=== PATIENT | male | born 1960 | race African-American/Black ===

== ENCOUNTER 2018-01-04 10:20 | Observation (INO) ==
[2018-01-04] MEDS ORDERED: ONDANSETRON 4 MG/2 ML VIAL IV STA (10:30)
[2018-01-04] MEDS ORDERED: cefTRIAXone 1,000 MG in SODIUM CHLORIDE 0.9% 100 ML IV STA (10:30)
[2018-01-04] MEDS ORDERED: ALBUTEROL 2.5 MG/3 ML NEB RESP TX SCH (10:30)
[2018-01-04] MEDS ORDERED: SODIUM CHLORIDE 0.9% 500 ML IV STA (10:30)
[2018-01-04] MEDS ORDERED: methylPREDNISolone SOD SUC 125 MG/2 ML VIAL IV STA (10:30)
[2018-01-04] MEDS ORDERED: FUROSEMIDE 40 MG/4 ML VIAL IV STA (10:57)
[2018-01-04] MEDS ORDERED: cefTRIAXone 1,000 MG VIAL ONE (11:14)
[2018-01-04] MEDS ORDERED: methylPREDNISolone SOD SUC 125 MG/2 ML VIAL ONE (11:14)
[2018-01-04] MEDS ORDERED: ONDANSETRON 4 MG/2 ML VIAL ONE (11:14)
[2018-01-04] MEDS ORDERED: FUROSEMIDE 100 MG/10 ML VIAL ONE (11:14)
[2018-01-04 11:16] LABS: Basophils % 0.2 % (0.0-0.8); Hematocrit 43.7 VOL% (42.0-52.0); Hemoglobin 14.9 GM/DL (14.0-18.0); Lymphocytes # 2.3 10*3/uL (1.4-4.0); Lymphocytes % 51.3 % (21.2-54.2); Mean Corpuscular HGB Conc 34.1 GM/DL (32-36); Mean Corpuscular Hemoglobin 32 PG (27-34); Mean Corpuscular Volume 92.8 FL (87-102); Mean Platelet Volume 11.3 FL (9.6-12.0); Monocytes # 0.4 10*3/uL (0.11-0.8); Monocytes % 9.8 % (1.7-12.7); Neutrophils # 1.7 10*3/uL (1.4-7.4); Neutrophils % 38.7 % (38.7-73.9); Platelet Count 129 T/CUMM (130-400); Red Blood Count 4.71 MC/CUMM (3.8-5.5); Red Cell Distribution Width 12.8 % (9.3-17.3); White Blood Count 4.5 T/CUMM (4-12)
[2018-01-04 11:27] LABS: PT Patient Result 10.7 SECS
[2018-01-04 11:36] LABS: Alanine Aminotransferase 36 U/L (16-61); Albumin 3.6 G/DL (3.4-5.0); Alkaline Phosphatase 98 U/L (45-117); Aspartate Amino Transferase 61 U/L (0-37); Blood Urea Nitrogen 12 MG/DL (7-18); Calcium 7.8 MG/DL (8.5-10.1); Glucose 92 MG/DL (74-106); Osmolality,Calculated 272.8 MOS/KG (273-304); Potassium 3.5 MMOL/L (3.5-5.1); Sodium 137 MMOL/L (136-145); Total Protein 7.6 G/DL (6.4-8.3); Troponin I Only < 0.015 NG/ML (0.00-0.045)
[2018-01-04 11:49] LABS: Lactic Acid 0.8 MMOL/L (0.4-2.0)
[2018-01-04 12:11] LABS: Hypochromasia 1+; Lymphocytes 52 % (20-55); Platelet Estimate Decreased; Segmented Neutrophils 35 % (50-85); Total Cells Counted 100
[2018-01-04] MEDS ORDERED: MORPHINE 2 MG/1 ML SYRINGE IV PRN (14:43)
[2018-01-04] MEDS ORDERED: ONDANSETRON 4 MG/2 ML VIAL IV PRN (14:43)
[2018-01-04] MEDS ORDERED: ACETAMINOPHEN 325 MG TABLET PO PRN (14:43)
[2018-01-04 16:27] LABS: Apearance,Urine CLEAR (Clear); Bilirubin,Urine Negative (Negative); Blood, Urine Negative (Negative); Glucose,Urine (UA) Negative (Negative); Ketones,Urine 5 mg/dL (Negative); Mucus,Urine Occasional /LPF (Occasional); Nitrite,Urine Negative (Negative); Protein,Urine Negative; RBC,Urine 1 /HPF (0-4); Squamous Epithelial Cell,Urine Occasional /HPF (0-10); Urine Color Yellow (Yellow); Urine Specific Gravity 1.012 (1.001-1.035); Urine Urobilinogen < 2.0 EU/DL (0.2-1.0); WBC,Urine 2 /HPF (0-6)
[2018-01-04] MEDS: methylPREDNISolone SOD SUC 40 MG/1 ML VIAL IV SCH (17:37)
[2018-01-04] MEDS: AZITHROMYCIN INJ 500 MG in SODIUM CHLORIDE 0.9% 250 ML IV SCH (17:37)
[2018-01-04] MEDS: PANTOPRAZOLE 40 MG TABLET PO SCH (17:37)
[2018-01-04] MEDS: ALBUTEROL/IPRATROPIUM 3 ML NEB RESP TX SCH (19:49)
[2018-01-04] MEDS: ENOXAPARIN 40 MG/0.4 ML SYRINGE SUBCUT SCH (21:36)
[2018-01-04] MEDS: guaiFENesin/DM ER 600-30 MG TABLET PO SCH (21:36)
[2018-01-05] MEDS: ALBUTEROL/IPRATROPIUM 3 ML NEB RESP TX SCH ×5 (01:28→23:52)
[2018-01-05] MEDS: methylPREDNISolone SOD SUC 40 MG/1 ML VIAL IV SCH ×3 (02:55→16:46)
[2018-01-05 06:39] LABS: Basophils % 0.4 % (0.0-0.8); Hematocrit 41.1 VOL% (42.0-52.0); Hemoglobin 14.4 GM/DL (14.0-18.0); Immature Granulocytes % 0.4 %; Immature Granulocytes Absolute 0.01 #; Lymphocytes # 0.9 10*3/uL (1.4-4.0); Lymphocytes % 33.9 % (21.2-54.2); Mean Corpuscular Hemoglobin 31 PG (27-34); Mean Corpuscular Volume 89.3 FL (87-102); Mean Platelet Volume 11.5 FL (9.6-12.0); Monocytes # 0.3 10*3/uL (0.11-0.8); Monocytes % 9.2 % (1.7-12.7); Neutrophils # 1.5 10*3/uL (1.4-7.4); Neutrophils % 56.1 % (38.7-73.9); Platelet Count 144 T/CUMM (130-400); Red Cell Distribution Width 12.7 % (9.3-17.3); White Blood Count 2.7 T/CUMM (4-12)
[2018-01-05 07:05] LABS: Calcium 8.2 MG/DL (8.5-10.1); Osmolality,Calculated 278.7 MOS/KG (273-304); Potassium 3.3 MMOL/L (3.5-5.1)
[2018-01-05 07:06] LABS: Lymphocytes 27 % (20-55); Segmented Neutrophils 70 % (50-85); Total Cells Counted 100
[2018-01-05 07:07] LABS: Hypochromasia 2+; Microcytosis 2+; Platelet Estimate Adequate
[2018-01-05] MEDS: POTASSIUM CHLORIDE 20 MEQ TABLET PO PRN ×3 (09:02→12:28)
[2018-01-05] MEDS: guaiFENesin/DM ER 600-30 MG TABLET PO SCH ×2 (09:02→22:00)
[2018-01-05] MEDS: PANTOPRAZOLE 40 MG TABLET PO SCH (09:02)
[2018-01-05] MEDS: cefTRIAXone 1,000 MG in SYRINGE 1 EACH IV SCH (12:25)
[2018-01-05] MEDS: GABAPENTIN 600 MG TABLET PO SCH ×2 (14:51→22:00)
[2018-01-05] MEDS: AZITHROMYCIN INJ 500 MG in SODIUM CHLORIDE 0.9% 250 ML IV SCH (16:45)
[2018-01-05] MEDS: FUROSEMIDE 40 MG TABLET PO SCH (16:46)
[2018-01-05] MEDS: LOVASTATIN 20 MG TABLET PO SCH (16:46)
[2018-01-05] MEDS: POTASSIUM CHLORIDE 20 MEQ TABLET PO SCH (22:00)
[2018-01-05] MEDS: ENOXAPARIN 40 MG/0.4 ML SYRINGE SUBCUT SCH (22:00)
[2018-01-06] MEDS: methylPREDNISolone SOD SUC 40 MG/1 ML VIAL IV SCH ×3 (01:30→16:30)
[2018-01-06 06:27] LABS: Basophils % 0.2 % (0.0-0.8); Hematocrit 41.2 VOL% (42.0-52.0); Hemoglobin 13.8 GM/DL (14.0-18.0); Immature Granulocytes % 0.3 %; Immature Granulocytes Absolute 0.02 #; Lymphocytes # 1.4 10*3/uL (1.4-4.0); Lymphocytes % 23.1 % (21.2-54.2); Mean Corpuscular HGB Conc 33.5 GM/DL (32-36); Mean Corpuscular Hemoglobin 31 PG (27-34); Mean Corpuscular Volume 92.6 FL (87-102); Monocytes # 0.5 10*3/uL (0.11-0.8); Neutrophils # 4.2 10*3/uL (1.4-7.4); Neutrophils % 68.4 % (38.7-73.9); Platelet Count 142 T/CUMM (130-400); Red Blood Count 4.45 MC/CUMM (3.8-5.5); Red Cell Distribution Width 12.9 % (9.3-17.3); White Blood Count 6.1 T/CUMM (4-12)
[2018-01-06 06:58] LABS: Calcium 8.1 MG/DL (8.5-10.1); Osmolality,Calculated 281.5 MOS/KG (273-304); Potassium 4.5 MMOL/L (3.5-5.1)
[2018-01-06 07:02] LABS: Band Neutrophils 3 % (0-10); Giant Platelets Few; Hypochromasia 1+; Lymphocytes 24 % (20-55); Microcytosis Slight; Ovalocytes Slight; Platelet Estimate Normal; Segmented Neutrophils 65 % (50-85); Total Cells Counted 100
[2018-01-06] MEDS: ALBUTEROL/IPRATROPIUM 3 ML NEB RESP TX SCH ×3 (07:35→20:27)
[2018-01-06] MEDS: FUROSEMIDE 40 MG TABLET PO SCH ×2 (09:22→16:30)
[2018-01-06] MEDS: GABAPENTIN 600 MG TABLET PO SCH ×3 (09:22→21:12)
[2018-01-06] MEDS: guaiFENesin/DM ER 600-30 MG TABLET PO SCH ×2 (09:22→21:11)
[2018-01-06] MEDS: POTASSIUM CHLORIDE 20 MEQ TABLET PO SCH ×2 (09:22→21:12)
[2018-01-06] MEDS: PANTOPRAZOLE 40 MG TABLET PO SCH (09:22)
[2018-01-06] MEDS: oxyCODONE/ACETAMINOPHEN 5-325 MG TABLET PO PRN ×2 (09:29→16:32)
[2018-01-06] MEDS: cefTRIAXone 1,000 MG in SYRINGE 1 EACH IV SCH (11:39)
[2018-01-06] MEDS: LOVASTATIN 20 MG TABLET PO SCH (16:30)
[2018-01-06] MEDS ORDERED: AZITHROMYCIN 250 MG TABLET PO SCH (21:00)
[2018-01-06] MEDS: ENOXAPARIN 40 MG/0.4 ML SYRINGE SUBCUT SCH (21:12)
[2018-01-07] MEDS: ALBUTEROL/IPRATROPIUM 3 ML NEB RESP TX SCH ×3 (00:38→14:25)
[2018-01-07] MEDS: methylPREDNISolone SOD SUC 40 MG/1 ML VIAL IV SCH ×3 (01:40→18:25)
[2018-01-07] MEDS: guaiFENesin/DM ER 600-30 MG TABLET PO SCH (08:57)
[2018-01-07] MEDS: POTASSIUM CHLORIDE 20 MEQ TABLET PO SCH (08:57)
[2018-01-07] MEDS: GABAPENTIN 600 MG TABLET PO SCH ×2 (08:57→14:50)
[2018-01-07] MEDS: oxyCODONE/ACETAMINOPHEN 5-325 MG TABLET PO PRN (08:58)
[2018-01-07] MEDS: FUROSEMIDE 40 MG TABLET PO SCH ×2 (08:58→17:07)
[2018-01-07] MEDS: PANTOPRAZOLE 40 MG TABLET PO SCH (08:59)
[2018-01-07] MEDS: cefTRIAXone 1,000 MG in SYRINGE 1 EACH IV SCH (14:53)
[2018-01-07] MEDS: LOVASTATIN 20 MG TABLET PO SCH (17:08)
[2018-01-07 17:48] VITALS: BP 127/65
== END 2018-01-07 18:15 | disposition home health service (06) ==
LOC: EDBD → EDUNIT# → N.ED 10:20 → INTOOBSV 12:33 → N.EDINP 12:33 → SUATTDRO 12:33 → N.5E 14:50
PROVIDERS: ADMIT Family Medicine; ATTEND Hospitalist

== ENCOUNTER 2022-09-18 14:44 | Inpatient (IN) ==
[2022-09-18] MEDS ORDERED: SODIUM CHLORIDE 0.9% 1,000 ML IV STA (15:09)
[2022-09-18] MEDS ORDERED: PIPERACILLIN/TAZOBACTAM 3,375 MG in SODIUM CHLORIDE 0.9% 100 ML IV STA (15:09)
[2022-09-18 15:33] LABS: Arterial Base Excess iSTAT -8 MMOL/L (-2.5-2.5); Arterial Bicarbonate iSTAT 18.4 MMOL/L (20-26); Arterial O2 Saturation iSTAT 100 % (95-100); Arterial PCO2 iSTAT 40 MM HG (35-48); Arterial PO2 iSTAT 237 MM HG (80-95); Arterial Total CO2 iSTAT 20 MMO/L (23-27); Arterial pH iSTAT 7.268 (7.35-7.45)
[2022-09-18 15:49] LABS: Hematocrit 26.2 VOL% (42.0-52.0); Hemoglobin 8.4 GM/DL (14.0-18.0); Immature Granulocytes % 0.3 %; Immature Granulocytes Absolute 0.01 #; Lymphocytes # 0.9 10*3/uL (1.4-4.0); Lymphocytes % 26.3 % (21.2-54.2); Mean Corpuscular HGB Conc 32.1 GM/DL (32-36); Mean Platelet Volume 10.5 FL (9.6-12.0); Monocytes # 0.2 10*3/uL (0.11-0.8); Monocytes % 5.1 % (1.7-12.7); Neutrophils % 68.3 % (38.7-73.9); Platelet Count 165 T/CUMM (130-400); Red Blood Count 2.73 MC/CUMM (3.8-5.5); Red Cell Distribution Width 15.2 % (9.3-17.3); White Blood Count 3.5 T/CUMM (4-12)
[2022-09-18 16:03] LABS: INR 1.9; PT Patient Result 19.8 SECS (10.1-12.1); Partial Thromboplastin Time 55.8 SECS (23.7-32.9)
[2022-09-18 16:10] LABS: Alanine Aminotransferase 9 U/L (16-61); Albumin 0.6 G/DL (3.4-5.0); Alkaline Phosphatase 130 U/L (45-117); Aspartate Amino Transferase 11 U/L (0-37); Bilirubin,Total < 0.39 MG/DL (0.20-1.00); Blood Urea Nitrogen 12 MG/DL (7-18); Calcium 6.2 MG/DL (8.5-10.1); Carbon Dioxide 22 MMOL/L (21-32); Chloride 115 MMOL/L (98-107); Glucose 134 MG/DL (74-106); Potassium 4.4 MMOL/L (3.5-5.1); Sodium 143 MMOL/L (136-145); Total Protein 3.7 G/DL (6.4-8.2)
[2022-09-18] MEDS ORDERED: SODIUM CHLORIDE 0.9% 2,650 ML IV ONE (16:18)
[2022-09-18 16:43] LABS: Band Neutrophils 25 % (0-10); Lymphocytes 22 % (20-55); Total Cells Counted 100
[2022-09-18 16:44] LABS: Platelet Estimate Adequate
[2022-09-18 16:48] LABS: Atypical Lymphocytes Few; Poikilocytosis Few
[2022-09-18 16:58] LABS: Bacteria,Urine Few /HPF (Few); Bilirubin,Urine Negative (Negative); Blood, Urine Moderate mg/dL (Negative); Glucose,Urine (UA) Negative (Negative); Ketones,Urine 5 mg/dL (Negative); Nitrite,Urine Negative (Negative); Protein,Urine 30 mg/dL (Negative); RBC,Urine 148 /HPF (0-4); Urine Appearance CLOUDY (Clear); Urine Color Yellow (Yellow); Urine Urobilinogen < 2.0 eU/dL (<2.0)
[2022-09-18] MEDS ORDERED: ROCURONIUM 100 MG/10 ML VIAL IV ONE (17:16)
[2022-09-18] MEDS ORDERED: ETOMIDATE 20 MG/10 ML VIAL IV ONE (17:16)
[2022-09-18] MEDS ORDERED: ALBUTEROL 2.5 MG/3 ML NEB RESP TX PRN (17:47)
[2022-09-18] MEDS ORDERED: ONDANSETRON 4 MG/2 ML VIAL IV PRN (17:48)
[2022-09-18] MEDS: LACTATED RINGERS 1,000 ML IV SCH (18:22)
[2022-09-18] MEDS ORDERED: NOREPINEPHRINE 4 MG/4 ML VIAL IV ONE (18:53)
[2022-09-18] MEDS: NOREPINEPHRINE 8 MG in SODIUM CHLORIDE 0.9% 242 ML IV PRN (19:00)
[2022-09-18] MEDS: MIDAZOLAM 100 MG in SODIUM CHLORIDE 0.9% 80 ML IV PRN (20:00)
[2022-09-18] MEDS ORDERED: VANCOMYCIN INJ 2,000 MG in SODIUM CHLORIDE 0.9% 500 ML IV ONE (20:00)
[2022-09-18] MEDS: ALBUTEROL/IPRATROPIUM 3 ML NEB RESP TX SCH (20:27)
[2022-09-18] MEDS: ENOXAPARIN 40 MG/0.4 ML SYRINGE SUBCUT SCH (21:20)
[2022-09-18] MEDS: FAMOTIDINE 20 MG/2 ML VIAL IV SCH (21:20)
[2022-09-19] MEDS: PIPERACILLIN/TAZOBACTAM 3,375 MG in SODIUM CHLORIDE 0.9% 100 ML IV SCH ×3 (00:20→17:05)
[2022-09-19] MEDS: ALBUTEROL/IPRATROPIUM 3 ML NEB RESP TX SCH ×4 (00:21→18:56)
[2022-09-19] MEDS: LACTATED RINGERS 1,000 ML IV SCH ×3 (02:30→23:24)
[2022-09-19] MEDS: NOREPINEPHRINE 8 MG in SODIUM CHLORIDE 0.9% 242 ML IV PRN ×4 (02:30→12:27)
[2022-09-19 03:53] LABS: Arterial Base Excess iSTAT -9 MMOL/L (-2.5-2.5); Arterial Bicarbonate iSTAT 16.3 MMOL/L (20-26); Arterial O2 Saturation iSTAT 100 % (95-100); Arterial PCO2 iSTAT 32 MM HG (35-48); Arterial PO2 iSTAT 278 MM HG (80-95); Arterial Total CO2 iSTAT 17 MMO/L (23-27); Arterial pH iSTAT 7.317 (7.35-7.45)
[2022-09-19 04:37] LABS: Basophils % 0.1 % (0.0-0.8); Hematocrit 25.4 VOL% (42.0-52.0); Hemoglobin 8.2 GM/DL (14.0-18.0); Immature Granulocytes % 0.7 %; Immature Granulocytes Absolute 0.05 #; Lymphocytes # 0.9 10*3/uL (1.4-4.0); Lymphocytes % 12.9 % (21.2-54.2); Mean Corpuscular HGB Conc 32.3 GM/DL (32-36); Mean Corpuscular Volume 96.2 FL (87-102); Mean Platelet Volume 10.7 FL (9.6-12.0); Monocytes # 0.4 10*3/uL (0.11-0.8); Monocytes % 5.5 % (1.7-12.7); Neutrophils % 80.8 % (38.7-73.9); Platelet Count 167 T/CUMM (130-400); Red Blood Count 2.64 MC/CUMM (3.8-5.5); Red Cell Distribution Width 15.2 % (9.3-17.3); White Blood Count 6.9 T/CUMM (4-12)
[2022-09-19 04:45] LABS: INR 2.3; PT Patient Result 23.9 SECS (10.1-12.1)
[2022-09-19 04:47] LABS: Calcium 6.1 MG/DL (8.5-10.1); Osmolality,Calculated 284.1 MOS/KG (273-304); Potassium 4.2 MMOL/L (3.5-5.1)
[2022-09-19 05:03] LABS: Band Neutrophils 5 % (0-10); Lymphocytes 18 % (20-55); Total Cells Counted 100
[2022-09-19 05:04] LABS: Burr Cells Few; Hypochromia Slight; Microcytosis Slight
[2022-09-19 05:05] LABS: Ovalocytes Slight
[2022-09-19] MEDS ORDERED: NOREPINEPHRINE 4 MG/4 ML VIAL IV ONE (06:14)
[2022-09-19] MEDS ORDERED: LACTATED RINGERS 500 ML IV ONE (06:30)
[2022-09-19] MEDS ORDERED: SODIUM CHLORIDE 0.9% 1,000 ML IV ONE (08:10)
[2022-09-19] MEDS ORDERED: MAGNESIUM SULF RIDER 2 GM/50 ML PREMIX IV ONE (08:12)
[2022-09-19] MEDS: FAMOTIDINE 20 MG/2 ML VIAL IV SCH ×2 (08:42→20:17)
[2022-09-19] MEDS ORDERED: ALBUMIN 5% 25.0 GM/500 ML VIAL IV ONE (10:33)
[2022-09-19] MEDS ORDERED: ALBUMIN 5% 25 GM/500 ML VIAL IV ONE (10:38)
[2022-09-19] MEDS ORDERED: MAGNESIUM SULF RIDER 4 GM/100 ML PREMIX IV PRN (11:42)
[2022-09-19 13:15] LABS: Calcium 6.1 MG/DL (8.5-10.1); Osmolality,Calculated 289.7 MOS/KG (273-304); Potassium 4.5 MMOL/L (3.5-5.1)
[2022-09-19] MEDS: MAGNESIUM SULF RIDER 2 GM/50 ML PREMIX IV PRN ×2 (14:15→15:57)
[2022-09-19] MEDS ORDERED: LACTULOSE 20 GM/30 ML UDCUP PO SCH (14:30)
[2022-09-19] MEDS: NOREPINEPHRINE 16 MG in SODIUM CHLORIDE 0.9% 234 ML IV PRN ×2 (15:09→20:31)
[2022-09-19] MEDS: RIFAXIMIN 550 MG TABLET PO SCH ×2 (15:09→20:18)
[2022-09-19] MEDS: VANCOMYCIN INJ 1,250 MG in SODIUM CHLORIDE 0.9% 250 ML IV SCH (15:09)
[2022-09-19] MEDS: ENOXAPARIN 40 MG/0.4 ML SYRINGE SUBCUT SCH (20:17)
[2022-09-19] MEDS ORDERED: ACETAMINOPHEN 325 MG/10.15 ML UDCUP PO PRN (20:54)
[2022-09-20] MEDS: ALBUTEROL/IPRATROPIUM 3 ML NEB RESP TX SCH ×5 (00:44→23:10)
[2022-09-20] MEDS: PIPERACILLIN/TAZOBACTAM 3,375 MG in SODIUM CHLORIDE 0.9% 100 ML IV SCH ×3 (01:18→15:11)
[2022-09-20 03:54] LABS: Arterial Base Excess iSTAT -8 MMOL/L (-2.5-2.5); Arterial Bicarbonate iSTAT 17.1 MMOL/L (20-26); Arterial O2 Saturation iSTAT 99 % (95-100); Arterial PCO2 iSTAT 34 MM HG (35-48); Arterial PO2 iSTAT 156 MM HG (80-95); Arterial Total CO2 iSTAT 18 MMO/L (23-27); Arterial pH iSTAT 7.315 (7.35-7.45)
[2022-09-20 04:28] LABS: Basophils % 0.1 % (0.0-0.8); Eosinophils % 0.1 % (0.00-10.9); Hematocrit 22.6 VOL% (42.0-52.0); Hemoglobin 7.3 GM/DL (14.0-18.0); Immature Granulocytes % 1.3 %; Immature Granulocytes Absolute 0.11 #; Lymphocytes # 1.5 10*3/uL (1.4-4.0); Mean Corpuscular HGB Conc 32.3 GM/DL (32-36); Mean Corpuscular Volume 96.2 FL (87-102); Mean Platelet Volume 10.7 FL (9.6-12.0); Monocytes # 0.6 10*3/uL (0.11-0.8); Monocytes % 6.9 % (1.7-12.7); NRBC # 0.03 10*3/uL; Neutrophils % 73.6 % (38.7-73.9); Platelet Count 156 T/CUMM (130-400); Red Blood Count 2.35 MC/CUMM (3.8-5.5); Red Cell Distribution Width 15.6 % (9.3-17.3); White Blood Count 8.2 T/CUMM (4-12)
[2022-09-20] MEDS: NOREPINEPHRINE 16 MG in SODIUM CHLORIDE 0.9% 234 ML IV PRN ×3 (04:33→16:58)
[2022-09-20 04:46] LABS: Calcium 6.3 MG/DL (8.5-10.1); Osmolality,Calculated 292.8 MOS/KG (273-304); Potassium 4.4 MMOL/L (3.5-5.1)
[2022-09-20 04:51] LABS: Lymphocytes 20 % (20-55); Nucleated Red Blood Cells 1 /100 WBC (0-5); Platelet Estimate Adequate; Total Cells Counted 100
[2022-09-20] MEDS ORDERED: LACTULOSE 20 GM/30 ML UDCUP PO ONE (06:00)
[2022-09-20] MEDS: LACTATED RINGERS 1,000 ML IV SCH (07:22)
[2022-09-20] MEDS ORDERED: SODIUM CHLORIDE 0.9% 1,000 ML IV PRN (08:17)
[2022-09-20] MEDS: ALBUMIN 5% 25 GM/500 ML VIAL IV SCH (08:52)
[2022-09-20] MEDS: FAMOTIDINE 20 MG/2 ML VIAL IV SCH ×2 (08:53→22:05)
[2022-09-20] MEDS: RIFAXIMIN 550 MG TABLET PO SCH ×2 (08:53→22:41)
[2022-09-20] MEDS: VANCOMYCIN INJ 1,250 MG in SODIUM CHLORIDE 0.9% 250 ML IV SCH (09:38)
[2022-09-20] MEDS ORDERED: FUROSEMIDE 40 MG/4 ML VIAL IV ONE ×3 (10:26→22:52)
[2022-09-20] MEDS: INSULIN REGULAR 100 UNIT/ML SUBCUT SCH ×2 (12:06→18:21)
[2022-09-20] MEDS: MORPHINE 2 MG/1 ML SYRINGE IV PRN ×2 (14:29→17:32)
[2022-09-20] MEDS ORDERED: ALBUMIN 25% 25 GM/100 ML VIAL IV ONE (16:38)
[2022-09-20] MEDS ORDERED: SODIUM BICARBONATE 50 MEQ/50 ML SYRINGE IV ONE ×2 (17:43→23:43)
[2022-09-20] MEDS ORDERED: SODIUM CHLORIDE 0.9% 250 ML IV ONE (17:48)
[2022-09-20] MEDS ORDERED: DEXMEDETOMIDINE 200 MCG in SODIUM CHLORIDE 0.9% 48 ML IV PRN (17:49)
[2022-09-20] MEDS ORDERED: SODIUM BICARBONATE 50 MEQ/50 ML VIAL IV ONE ×4 (17:49→23:59)
[2022-09-20] MEDS ORDERED: SODIUM BICARB INJ 150 MEQ in STERILE WATER INJ 850 ML IV SCH (18:00)
[2022-09-20] MEDS ORDERED: SODIUM BICARB INJ 150 MEQ in STERILE WATER INJ 1,000 ML IV SCH (18:30)
[2022-09-20 21:36] LABS: Arterial Base Excess iSTAT -14 MMOL/L (-2.5-2.5); Arterial Bicarbonate iSTAT 15.6 MMOL/L (20-26); Arterial O2 Saturation iSTAT 72 % (95-100); Arterial PCO2 iSTAT 54 MM HG (35-48); Arterial PO2 iSTAT 54 MM HG (80-95); Arterial Total CO2 iSTAT 17 MMO/L (23-27); Arterial pH iSTAT 7.066 (7.35-7.45)
[2022-09-20 21:42] LABS: Arterial Base Excess iSTAT -14 MMOL/L (-2.5-2.5); Arterial O2 Saturation iSTAT 72 % (95-100); Arterial PCO2 iSTAT 61 MM HG (35-48); Arterial PO2 iSTAT 55 MM HG (80-95); Arterial Total CO2 iSTAT 18 MMO/L (23-27)
[2022-09-20] MEDS ORDERED: ROCURONIUM 500 MG in SODIUM CHLORIDE 0.9% 500 ML IV PRN (21:48)
[2022-09-20] MEDS ORDERED: ROCURONIUM 100 MG/10 ML VIAL IV ONE (21:49)
[2022-09-20] MEDS ORDERED: fentaNYL INJ 1,250 MCG in SODIUM CHLORIDE 0.9% 225 ML IV PRN (21:52)
[2022-09-20] MEDS: ENOXAPARIN 40 MG/0.4 ML SYRINGE SUBCUT SCH (22:00)
[2022-09-20] MEDS ORDERED: DIGOXIN 0.5 MG/2 ML AMP ONE (22:09)
[2022-09-20] MEDS ORDERED: DIGOXIN 0.5 MG/2 ML AMP IV ONE ×2 (22:10→23:45)
[2022-09-20] MEDS: DOBUTamine 500 MG/250 ML PREMIX IV PRN (23:09)
[2022-09-20] MEDS: ACETYLCYSTEINE 20% 800 MG/4 ML VIAL RESP TX SCH (23:10)
[2022-09-20] MEDS ORDERED: MORPHINE 2 MG/1 ML SYRINGE IV ONE (23:15)
[2022-09-20] MEDS: methylPREDNISolone SOD SUC 40 MG/1 ML VIAL IV SCH (23:30)
[2022-09-20 23:43] LABS: Eosinophils % 0.7 % (0.00-10.9); Hematocrit 29.7 VOL% (42.0-52.0); Lymphocytes # 0.8 10*3/uL (1.4-4.0); Lymphocytes % 55.4 % (21.2-54.2); Mean Corpuscular Volume 97.7 FL (87-102); Mean Platelet Volume 10.6 FL (9.6-12.0); Monocytes # 0.1 10*3/uL (0.11-0.8); Monocytes % 5.8 % (1.7-12.7); NRBC # 0.04 10*3/uL; Neutrophils % 38.1 % (38.7-73.9); Platelet Count 114 T/CUMM (130-400); Red Cell Distribution Width 16.4 % (9.3-17.3); White Blood Count 1.4 T/CUMM (4-12)
[2022-09-20 23:45] LABS: Hemoglobin 9.2 GM/DL (14.0-18.0); Red Blood Count 3.04 MC/CUMM (3.8-5.5)
[2022-09-20 23:50] LABS: ABG Base Excess -15.5 MMOL/L (-2.5-2.5); ABG HCO3 12.2 MMOL/L (20-26); ABG Oxygen Saturation 69.6 % (95-100); ABG PO2 50.3 MM HG (80-95); ABG TCO2 17.1 MMOL/L (23-27)
[2022-09-20 23:59] LABS: ABG PCO2 73.6 MM HG (35-48); ABG PH 6.973 (7.35-7.45)
[2022-09-21] MEDS ORDERED: SODIUM BICARBONATE 50 MEQ/50 ML SYRINGE IV ONE
[2022-09-21] MEDS ORDERED: SODIUM BICARBONATE 50 MEQ/50 ML VIAL IV ONE ×4 (00:04→06:00)
[2022-09-21 00:40] LABS: Eosinophils 2 % (0-10); Lymphocytes 61 % (20-55); Nucleated Red Blood Cells 4 /100 WBC (0-5); Total Cells Counted 100
[2022-09-21 00:41] LABS: Platelet Estimate Decreased
[2022-09-21 00:42] LABS: Burr Cells Slight; Microcytosis Slight
[2022-09-21 01:00] LABS: ABG Base Excess -13.5 MMOL/L (-2.5-2.5); ABG HCO3 13.6 MMOL/L (20-26); ABG Oxygen Saturation 80.2 % (95-100); ABG PCO2 51.9 MM HG (35-48); ABG PO2 53.8 MM HG (80-95); ABG TCO2 15.6 MMOL/L (23-27)
[2022-09-21 01:02] LABS: ABG PH 7.092 (7.35-7.45)
[2022-09-21] MEDS ORDERED: CALCIUM CHLORIDE 1,000 MG/10 ML SYRINGE IV ONE (01:14)
[2022-09-21] MEDS: VASOPRESSIN 100 UNITS in SODIUM CHLORIDE 0.9% 95 ML IV PRN (01:54)
[2022-09-21] MEDS: VANCOMYCIN INJ 1,250 MG in SODIUM CHLORIDE 0.9% 250 ML IV SCH (04:00)
[2022-09-21 05:29] LABS: ABG Base Excess -12.2 MMOL/L (-2.5-2.5); ABG HCO3 14.6 MMOL/L (20-26); ABG Oxygen Saturation 85.1 % (95-100); ABG PCO2 48.1 MM HG (35-48); ABG PO2 57.6 MM HG (80-95); ABG TCO2 15.9 MMOL/L (23-27)
[2022-09-21] MEDS: PHENYLEPHRINE DRIP 40 MG/250 ML PREMIX IV PRN ×11 (07:00→22:56)
[2022-09-21] MEDS: ALBUTEROL/IPRATROPIUM 3 ML NEB RESP TX SCH ×3 (07:10→18:58)
[2022-09-21] MEDS: ACETYLCYSTEINE 20% 800 MG/4 ML VIAL RESP TX SCH (07:18)
[2022-09-21] MEDS: PIPERACILLIN/TAZOBACTAM 3,375 MG in SODIUM CHLORIDE 0.9% 100 ML IV SCH ×2 (07:58→09:09)
[2022-09-21] MEDS: INSULIN REGULAR 100 UNIT/ML SUBCUT SCH ×4 (07:59→18:14)
[2022-09-21] MEDS: MIDAZOLAM 100 MG in SODIUM CHLORIDE 0.9% 80 ML IV PRN (08:30)
[2022-09-21] MEDS: NOREPINEPHRINE 16 MG in SODIUM CHLORIDE 0.9% 234 ML IV PRN ×2 (08:44→12:05)
[2022-09-21] MEDS: ALBUMIN 5% 25 GM/500 ML VIAL IV SCH (10:01)
[2022-09-21 10:08] LABS: Alanine Aminotransferase < 6 U/L (16-61); Albumin 1.5 G/DL (3.4-5.0); Alkaline Phosphatase 68 U/L (45-117); Aspartate Amino Transferase 24 U/L (0-37); Blood Urea Nitrogen 15 MG/DL (7-18); Calcium 6.1 MG/DL (8.5-10.1); Carbon Dioxide 15 MMOL/L (21-32); Chloride 120 MMOL/L (98-107); Glucose 135 MG/DL (74-106); Osmolality,Calculated 298.1 MOS/KG (273-304); Potassium 3.8 MMOL/L (3.5-5.1); Sodium 149 MMOL/L (136-145); Total Protein 3.2 G/DL (6.4-8.2)
[2022-09-21] MEDS: DOBUTamine 500 MG/250 ML PREMIX IV PRN ×4 (10:40→22:09)
[2022-09-21 10:42] LABS: Basophils % 0.4 % (0.0-0.8); Hematocrit 22.4 VOL% (42.0-52.0); Hemoglobin 7.1 GM/DL (14.0-18.0); Immature Granulocytes % 0.7 %; Immature Granulocytes Absolute 0.02 #; Lymphocytes # 0.8 10*3/uL (1.4-4.0); Lymphocytes % 27.1 % (21.2-54.2); Mean Corpuscular HGB Conc 31.7 GM/DL (32-36); Mean Corpuscular Volume 94.5 FL (87-102); Mean Platelet Volume 11.9 FL (9.6-12.0); Monocytes # 0.2 10*3/uL (0.11-0.8); Monocytes % 6.8 % (1.7-12.7); NRBC # 0.02 10*3/uL; Red Blood Count 2.37 MC/CUMM (3.8-5.5); Red Cell Distribution Width 16.8 % (9.3-17.3); White Blood Count 2.8 T/CUMM (4-12)
[2022-09-21 10:47] LABS: Platelet Count 31 T/CUMM (130-400)
[2022-09-21 11:22] LABS: Anisocytosis 2+; Band Neutrophils 37 % (0-10); Burr Cells 1+; Lymphocytes 24 % (20-55); Metamyelocytes 11 %; Myelocytes 2 %; Nucleated Red Blood Cells 2 /100 WBC (0-5); Platelet Estimate Decreased; Total Cells Counted 100
[2022-09-21 11:23] LABS: Macrocytosis Slight
[2022-09-21] MEDS ORDERED: SODIUM BICARB INJ 100 MEQ in DEXTROSE 5% 1,000 ML IV SCH (12:00)
[2022-09-21] MEDS ORDERED: NOREPINEPHRINE 4 MG/4 ML VIAL IV ONE (12:08)
[2022-09-21] MEDS: RIFAXIMIN 550 MG TABLET PO SCH ×2 (12:47→21:18)
[2022-09-21] MEDS: FAMOTIDINE 20 MG/2 ML VIAL IV SCH ×2 (12:47→21:18)
[2022-09-21] MEDS: methylPREDNISolone SOD SUC 40 MG/1 ML VIAL IV SCH ×2 (12:47→18:29)
[2022-09-21] MEDS: MEROPENEM 500 MG in SODIUM CHLORIDE 0.9% 100 ML IV SCH ×2 (14:10→21:17)
[2022-09-21 14:18] LABS: Basophils % 0.3 % (0.0-0.8); Hematocrit 22.4 VOL% (42.0-52.0); Hemoglobin 7.1 GM/DL (14.0-18.0); Immature Granulocytes % 1.1 %; Immature Granulocytes Absolute 0.04 #; Lymphocytes % 27.6 % (21.2-54.2); Mean Corpuscular HGB Conc 31.7 GM/DL (32-36); Mean Corpuscular Volume 94.9 FL (87-102); Mean Platelet Volume 11.8 FL (9.6-12.0); Monocytes # 0.2 10*3/uL (0.11-0.8); Monocytes % 4.7 % (1.7-12.7); Neutrophils % 66.3 % (38.7-73.9); Red Blood Count 2.36 MC/CUMM (3.8-5.5); Red Cell Distribution Width 16.6 % (9.3-17.3); White Blood Count 3.6 T/CUMM (4-12)
[2022-09-21 14:30] LABS: Platelet Count 30 T/CUMM (130-400)
[2022-09-21] MEDS ORDERED: SODIUM CHLORIDE 0.9% 1,000 ML IV PRN ×2 (14:38→14:39)
[2022-09-21] MEDS: NOREPINEPHRINE 32 MG in SODIUM CHLORIDE 0.9% 468 ML IV PRN ×2 (15:10→21:19)
[2022-09-21 15:57] LABS: Band Neutrophils 15 % (0-10); Lymphocytes 29 % (20-55); Metamyelocytes 3 %; Platelet Estimate Decreased; Total Cells Counted 100
[2022-09-21] MEDS: DORNASE ALFA 2.5 MG/2.5 ML VIAL RESP TX SCH (18:58)
[2022-09-22] MEDS: methylPREDNISolone SOD SUC 40 MG/1 ML VIAL IV SCH ×4 (00:01→18:06)
[2022-09-22] MEDS: INSULIN REGULAR 100 UNIT/ML SUBCUT SCH ×4 (00:02→18:05)
[2022-09-22] MEDS: ALBUTEROL/IPRATROPIUM 3 ML NEB RESP TX SCH ×5 (00:17→23:56)
[2022-09-22] MEDS: PHENYLEPHRINE INJ 160 MG in SODIUM CHLORIDE 0.9% 234 ML IV SCH ×4 (00:21→23:01)
[2022-09-22] MEDS: DOBUTamine 500 MG/250 ML PREMIX IV PRN ×4 (02:08→17:25)
[2022-09-22] MEDS: NOREPINEPHRINE 32 MG in SODIUM CHLORIDE 0.9% 468 ML IV PRN ×3 (03:16→17:20)
[2022-09-22] MEDS: MEROPENEM 500 MG in SODIUM CHLORIDE 0.9% 100 ML IV SCH ×3 (04:54→20:50)
[2022-09-22 05:02] LABS: ABG Base Excess -12.1 MMOL/L (-2.5-2.5); ABG HCO3 14.9 MMOL/L (20-26); ABG Oxygen Saturation 98.9 % (95-100); ABG PCO2 43.3 MM HG (35-48); ABG TCO2 15.1 MMOL/L (23-27)
[2022-09-22 05:02] LABS: Basophils % 0.3 % (0.0-0.8); Eosinophils % 0.2 % (0.00-10.9); Hematocrit 26.5 VOL% (42.0-52.0); Hemoglobin 8.4 GM/DL (14.0-18.0); Immature Granulocytes % 1.1 %; Immature Granulocytes Absolute 0.07 #; Lymphocytes # 1.1 10*3/uL (1.4-4.0); Lymphocytes % 16.2 % (21.2-54.2); Mean Corpuscular HGB Conc 31.7 GM/DL (32-36); Mean Corpuscular Volume 90.4 FL (87-102); Mean Platelet Volume 13.1 FL (9.6-12.0); Monocytes # 0.4 10*3/uL (0.11-0.8); Monocytes % 5.9 % (1.7-12.7); NRBC # 0.02 10*3/uL; Neutrophils % 76.3 % (38.7-73.9); Platelet Count 51 T/CUMM (130-400); Red Blood Count 2.93 MC/CUMM (3.8-5.5); Red Cell Distribution Width 18.6 % (9.3-17.3); White Blood Count 6.5 T/CUMM (4-12)
[2022-09-22 05:05] LABS: ABG PH 7.172 (7.35-7.45)
[2022-09-22 05:22] LABS: Phosphorous 3.2 MG/DL (2.5-4.9)
[2022-09-22 05:25] LABS: Albumin 1.6 G/DL (3.4-5.0); Bilirubin,Total 0.5 MG/DL (0.20-1.00); Calcium 6.2 MG/DL (8.5-10.1); Osmolality,Calculated 296.4 MOS/KG (273-304); Potassium 3.7 MMOL/L (3.5-5.1); Total Protein 3.7 G/DL (6.4-8.2)
[2022-09-22 05:30] LABS: Band Neutrophils 11 % (0-10); Lymphocytes 22 % (20-55); Metamyelocytes 2 %; Myelocytes 5 %; Nucleated Red Blood Cells 1 /100 WBC (0-5); Platelet Estimate Decreased; Total Cells Counted 100
[2022-09-22 05:56] VITALS: BP 93/51
[2022-09-22] MEDS ORDERED: MAGNESIUM SULF RIDER 2 GM/50 ML PREMIX IV ONE (07:54)
[2022-09-22] MEDS: DORNASE ALFA 2.5 MG/2.5 ML VIAL RESP TX SCH ×2 (07:59→19:52)
[2022-09-22] MEDS: FAMOTIDINE 20 MG/2 ML VIAL IV SCH ×2 (08:59→20:50)
[2022-09-22] MEDS: RIFAXIMIN 550 MG TABLET PO SCH ×2 (09:00→20:50)
[2022-09-22] MEDS: SODIUM BICARB INJ 150 MEQ in DEXTROSE 5% 1,000 ML IV SCH (10:12)
[2022-09-22] MEDS ORDERED: SODIUM BICARBONATE 50 MEQ/50 ML VIAL IV ONE (13:56)
[2022-09-22] MEDS: MORPHINE 2 MG/1 ML SYRINGE IV PRN (20:50)
[2022-09-23] MEDS: NOREPINEPHRINE 32 MG in SODIUM CHLORIDE 0.9% 468 ML IV PRN ×4 (00:01→18:51)
[2022-09-23] MEDS: INSULIN REGULAR 100 UNIT/ML SUBCUT SCH ×5 (00:45→23:29)
[2022-09-23] MEDS: methylPREDNISolone SOD SUC 40 MG/1 ML VIAL IV SCH ×4 (00:45→19:08)
[2022-09-23] MEDS: MORPHINE 2 MG/1 ML SYRINGE IV PRN (01:10)
[2022-09-23] MEDS: PHENYLEPHRINE INJ 160 MG in SODIUM CHLORIDE 0.9% 234 ML IV SCH ×4 (04:45→23:54)
[2022-09-23 04:52] LABS: ABG Base Excess -7.7 MMOL/L (-2.5-2.5); ABG HCO3 18.1 MMOL/L (20-26); ABG Oxygen Saturation 99.7 % (95-100); ABG PH 7.313 (7.35-7.45); ABG TCO2 16.5 MMOL/L (23-27)
[2022-09-23 04:57] LABS: Basophils # 0.1 10*3/uL (0.0-0.2); Basophils % 0.4 % (0.0-0.8); Hematocrit 26.7 VOL% (42.0-52.0); Hemoglobin 8.9 GM/DL (14.0-18.0); Immature Granulocytes % 1.2 %; Immature Granulocytes Absolute 0.19 #; Lymphocytes % 6.1 % (21.2-54.2); Mean Corpuscular HGB Conc 33.3 GM/DL (32-36); Mean Corpuscular Volume 86.4 FL (87-102); Monocytes # 0.6 10*3/uL (0.11-0.8); NRBC # 0.04 10*3/uL; Neutrophils % 88.3 % (38.7-73.9); Red Blood Count 3.09 MC/CUMM (3.8-5.5); Red Cell Distribution Width 18.6 % (9.3-17.3); White Blood Count 15.9 T/CUMM (4-12)
[2022-09-23] MEDS: MEROPENEM 500 MG in SODIUM CHLORIDE 0.9% 100 ML IV SCH ×3 (05:00→20:34)
[2022-09-23 05:01] LABS: Platelet Count 37 T/CUMM (130-400)
[2022-09-23 05:11] LABS: Albumin 1.4 G/DL (3.4-5.0); Bilirubin,Total 0.6 MG/DL (0.20-1.00); Calcium 6.4 MG/DL (8.5-10.1); Osmolality,Calculated 295.3 MOS/KG (273-304); Phosphorous 3.1 MG/DL (2.5-4.9); Potassium 3.8 MMOL/L (3.5-5.1); Total Protein 3.8 G/DL (6.4-8.2)
[2022-09-23 05:26] LABS: Band Neutrophils 2 % (0-10); Burr Cells Few; Lymphocytes 9 % (20-55); Metamyelocytes 1 %; Microcytosis 1+; Total Cells Counted 100
[2022-09-23 05:27] LABS: Acanthocytes Few; Ovalocytes Slight; Platelet Estimate Decreased
[2022-09-23] MEDS: MAGNESIUM SULF RIDER 2 GM/50 ML PREMIX IV PRN (05:29)
[2022-09-23] MEDS: VASOPRESSIN 100 UNITS in SODIUM CHLORIDE 0.9% 95 ML IV PRN (06:50)
[2022-09-23] MEDS: ALBUTEROL/IPRATROPIUM 3 ML NEB RESP TX SCH ×3 (07:36→19:20)
[2022-09-23] MEDS: DORNASE ALFA 2.5 MG/2.5 ML VIAL RESP TX SCH ×2 (07:48→19:30)
[2022-09-23 08:27] LABS: ABG Base Excess -7.8 MMOL/L (-2.5-2.5); ABG HCO3 18.1 MMOL/L (20-26); ABG PCO2 41.6 MM HG (35-48); ABG PH 7.263 (7.35-7.45); ABG TCO2 17.7 MMOL/L (23-27)
[2022-09-23] MEDS: FAMOTIDINE 20 MG/2 ML VIAL IV SCH ×2 (09:20→20:35)
[2022-09-23] MEDS: RIFAXIMIN 550 MG TABLET PO SCH ×2 (09:25→20:38)
[2022-09-23] MEDS: SODIUM BICARB INJ 150 MEQ in DEXTROSE 5% 1,000 ML IV SCH (09:31)
[2022-09-23] MEDS ORDERED: SODIUM BICARBONATE 50 MEQ/50 ML VIAL IV ONE ×2 (17:23→17:26)
[2022-09-23] MEDS: DOBUTamine 500 MG/250 ML PREMIX IV PRN (18:15)
[2022-09-23] MEDS ORDERED: DEXTROSE 50% 25 GM/50 ML SYRINGE IV ONE ×2 (18:55→19:57)
[2022-09-23] MEDS ORDERED: DEXTROSE 10% 250 ML BAG IV PRN (18:58)
[2022-09-23] MEDS ORDERED: MIDAZOLAM 2 MG/2 ML VIAL IV ONE (20:49)
[2022-09-23] MEDS ORDERED: LORazepam 2 MG/1 ML VIAL ONE (20:57)
[2022-09-23] MEDS ORDERED: LORazepam 2 MG/1 ML VIAL IV ONE (21:03)
[2022-09-23] MEDS: MIDAZOLAM 100 MG in SODIUM CHLORIDE 0.9% 80 ML IV PRN (22:55)
[2022-09-24] MEDS: methylPREDNISolone SOD SUC 40 MG/1 ML VIAL IV SCH ×4 (00:03→18:16)
[2022-09-24] MEDS: NOREPINEPHRINE 32 MG in SODIUM CHLORIDE 0.9% 468 ML IV PRN ×2 (00:34→07:01)
[2022-09-24] MEDS: ALBUTEROL/IPRATROPIUM 3 ML NEB RESP TX SCH ×4 (00:34→20:11)
[2022-09-24 02:47] LABS: ABG HCO3 16.3 MMOL/L (20-26); ABG Oxygen Saturation 90.5 % (95-100); ABG PCO2 38.8 MM HG (35-48); ABG PH 7.243 (7.35-7.45); ABG PO2 66.2 MM HG (80-95); ABG TCO2 15.9 MMOL/L (23-27)
[2022-09-24 02:50] LABS: Basophils % 0.2 % (0.0-0.8); Hematocrit 21.4 VOL% (42.0-52.0); Immature Granulocytes % 1.3 %; Immature Granulocytes Absolute 0.25 #; Lymphocytes # 1.1 10*3/uL (1.4-4.0); Lymphocytes % 5.9 % (21.2-54.2); Mean Corpuscular HGB Conc 32.7 GM/DL (32-36); Mean Corpuscular Volume 89.5 FL (87-102); Mean Platelet Volume 13.5 FL (9.6-12.0); Monocytes # 0.5 10*3/uL (0.11-0.8); Monocytes % 2.4 % (1.7-12.7); Neutrophils % 90.2 % (38.7-73.9); Red Blood Count 2.39 MC/CUMM (3.8-5.5); Red Cell Distribution Width 19.8 % (9.3-17.3); White Blood Count 19.3 T/CUMM (4-12)
[2022-09-24 02:52] LABS: Platelet Count 27 T/CUMM (130-400)
[2022-09-24] MEDS ORDERED: SODIUM BICARBONATE 50 MEQ/50 ML VIAL IV ONE ×3 (02:56→06:00)
[2022-09-24 03:07] LABS: Albumin 1.1 G/DL (3.4-5.0); Bilirubin,Total 0.4 MG/DL (0.20-1.00); Osmolality,Calculated 299.1 MOS/KG (273-304); Phosphorous 3.5 MG/DL (2.5-4.9); Potassium 4.3 MMOL/L (3.5-5.1); Total Protein 3.1 G/DL (6.4-8.2)
[2022-09-24 03:20] LABS: Lymphocytes 5 % (20-55); Platelet Estimate Decreased; Total Cells Counted 100
[2022-09-24 03:21] LABS: Hypochromia Slight; Microcytosis Slight
[2022-09-24] MEDS: MIDAZOLAM 100 MG in SODIUM CHLORIDE 0.9% 80 ML IV PRN (04:51)
[2022-09-24] MEDS: MEROPENEM 500 MG in SODIUM CHLORIDE 0.9% 100 ML IV SCH ×3 (04:52→22:04)
[2022-09-24] MEDS: INSULIN REGULAR 100 UNIT/ML SUBCUT SCH ×3 (05:02→17:55)
[2022-09-24] MEDS: PHENYLEPHRINE INJ 160 MG in SODIUM CHLORIDE 0.9% 234 ML IV SCH (06:11)
[2022-09-24] MEDS: DORNASE ALFA 2.5 MG/2.5 ML VIAL RESP TX SCH ×2 (07:25→20:14)
[2022-09-24] MEDS: RIFAXIMIN 550 MG TABLET PO SCH ×2 (09:36→22:03)
[2022-09-24] MEDS: SODIUM BICARB INJ 150 MEQ in DEXTROSE 5% 1,000 ML IV SCH ×2 (09:36→10:11)
[2022-09-24] MEDS: FAMOTIDINE 20 MG/2 ML VIAL IV SCH ×2 (09:37→22:04)
[2022-09-24] MEDS ORDERED: ROCURONIUM 1,000 MG in DEXTROSE 5% 175 ML IV PRN (10:00)
[2022-09-24] MEDS ORDERED: DEXMEDETOMIDINE 400 MCG in DEXTROSE 5% 96 ML IV PRN (10:00)
[2022-09-24] MEDS ORDERED: fentaNYL INJ 2,500 MCG in DEXTROSE 5% 75 ML IV PRN (10:00)
[2022-09-24] MEDS ORDERED: LORazepam 2 MG/1 ML VIAL ONE (11:12)
[2022-09-24] MEDS ORDERED: FOSPHENYTOIN 1,000 MG.PE in SODIUM CHLORIDE 0.9% 250 ML IV ONE (11:16)
[2022-09-24] MEDS ORDERED: LORazepam 2 MG/1 ML VIAL IV ONE (11:16)
[2022-09-24] MEDS: PHENYLEPHRINE INJ 160 MG in DEXTROSE 5% 234 ML IV SCH ×3 (12:02→23:40)
[2022-09-24] MEDS: DOBUTamine 500 MG/250 ML PREMIX IV PRN (12:08)
[2022-09-24] MEDS: DEXTROSE 5% IV PRN ×2 (12:29→18:22)
[2022-09-24] MEDS: NOREPINEPHRINE IV PRN ×2 (12:29→18:22)
[2022-09-24] MEDS: MIDAZOLAM 100 MG in DEXTROSE 5% 80 ML IV PRN (15:02)
[2022-09-25] MEDS: DEXTROSE 5% IV PRN ×2 (00:10→05:15)
[2022-09-25] MEDS: NOREPINEPHRINE IV PRN ×2 (00:10→05:15)
[2022-09-25] MEDS: INSULIN REGULAR 100 UNIT/ML SUBCUT SCH ×2 (00:12→06:34)
[2022-09-25] MEDS: methylPREDNISolone SOD SUC 40 MG/1 ML VIAL IV SCH ×2 (00:30→06:35)
[2022-09-25] MEDS: MIDAZOLAM 100 MG in DEXTROSE 5% 80 ML IV PRN (00:40)
[2022-09-25] MEDS: ALBUTEROL/IPRATROPIUM 3 ML NEB RESP TX SCH (01:00)
[2022-09-25] MEDS: PHENYLEPHRINE INJ 160 MG in DEXTROSE 5% 234 ML IV SCH (05:05)
[2022-09-25] MEDS: MEROPENEM 500 MG in SODIUM CHLORIDE 0.9% 100 ML IV SCH (05:15)
[2022-09-25] MEDS: SODIUM BICARB INJ 150 MEQ in DEXTROSE 5% 1,000 ML IV SCH (06:34)
[2022-09-25] MEDS ORDERED: VASOPRESSIN IV PRN (08:01)
[2022-09-25] MEDS ORDERED: DEXTROSE 5% IV PRN (08:01)
== END 2022-09-25 06:12 | disposition expired | DRG 870 ==
LOC: N.ED 14:44 → SUATTDRO 17:47 → N.EDINP 17:47 → N.ICU 20:31
PROVIDERS: ADMIT Family Medicine; ATTEND Internal Medicine